=== PATIENT | female | born 1965 | race Caucasian/White ===

== ENCOUNTER 2017-08-11 05:50 | Day surgery (SDC) | payer BC ==
[2017-08-10 10:31] VITALS: BMI 39.1
--- OUTSIDE RECORDS SUMMARY | 2017-08-11 05:53 | XMS | Clinical Summary ---
:1965 Author Organization [facility] Address [address] [place] [address] Phone Care Team Providers Name Role Phone , Primary Care Provider Unavailable Allergies Not on File Current Medications Not on file Active Problems Not on file Social History Tobacco Use Types Packs/Day Years Used Date Never Assessed Sex Assigned at Date Recorded Not on file Last Filed Vital Signs Not on file Plan of Treatment Not on file Results Not on filefrom Last 3 Months
[2017-08-11] MEDS ORDERED: Midazolam HCl 2 mg/2 ml Vial ONE (06:15)
[2017-08-11] MEDS ORDERED: Fentanyl 100 MCG/2 ML VIAL ONE (06:15)
[2017-08-11] MEDS ORDERED: Ropivacaine 0.2% HCl/PF 20 ML ONE (06:16)
[2017-08-11] MEDS ORDERED: traMADol HCl 50 MG TAB PO PRN ×2 (06:54)
[2017-08-11] MEDS ORDERED: Ropivacaine 0.2% 550 ML 550 ML NERVE BLCK SCH (06:54)
[2017-08-11] MEDS ORDERED: Ondansetron HCl/PF 4 MG/2 ML Vial IVP PRN (06:54)
[2017-08-11] MEDS ORDERED: HYDROcodone/Acetaminophen 10/325 mg Tablet PO PRN ×2 (06:54)
[2017-08-11] MEDS ORDERED: Zolpidem Tartrate 5 MG TAB PO PRN (06:54)
[2017-08-11] MEDS ORDERED: Promethazine HCl 25 MG/ML VIAL IM PRN (06:54)
[2017-08-11] MEDS ORDERED: Fentanyl 100 MCG/2 ML VIAL IV PRN (06:56)
[2017-08-11] MEDS ORDERED: Lidocaine 2% PF 10 ML AMP (For Epidural Use) ONE (07:22)
[2017-08-11] MEDS ORDERED: Propofol 200 MG/20 ML VIAL ONE (07:22)
[2017-08-11] MEDS ORDERED: Ondansetron HCl/PF 4 MG/2 ML Vial ONE (07:22)
[2017-08-11] MEDS ORDERED: Ketorolac Tromethamine 30 MG/ML VIAL ONE (07:22)
[2017-08-11] MEDS ORDERED: ePHEDrine/0.9% NaCl/PF SYRINGE 50 mg/10 ml ONE (07:22)
--- NOTE | 2017-08-11 12:05 | OP ---
PREOPERATIVE DIAGNOSIS: Rotator cuff tear, right shoulder. POSTOPERATIVE DIAGNOSIS: Rotator cuff tear, right shoulder. PROCEDURE PERFORMED: Arthroscopic rotator cuff repair. SURGEON: Esa Mcmahon M.D. ANESTHESIA: General. BLOOD LOSS: Minimal. SPECIMEN: None. DRAINS: None. COMPLICATIONS: None. ENVIRONMENTAL SCIENTIST: None. PROCEDURE IN DETAIL: The patient was taken to the operating room where general anesthesia was induc ed. The patient was placed in left lateral decubitus position. Right arm was placed in traction. Scope was placed in the posterior portal and cannula was placed in the lateral portal. Working port al was created anteriorly. She had no significant arthritis of the shoulder. She had a full-thickn ess rotator cuff tear. Scope was placed in the subacromial bursa. I performed a subacromial decomp ression and bursectomy. This exposed the tear, which was a strange configuration. It was a longitu dinal rent in the rotator cuff. I freshened up the rotator cuff from both sides with a shaver and p laced several [id number] sutures using Orthocord with a good watertight repair. Then, I placed chavez ture anchors through the greater tuberosity. I freshened the greater tuberosity up at the bur to ge t bleeding bone and sutured down to bone with a good watertight repair. Shoulder was drained. Port als closed with nylon suture.
== END 2017-08-11 11:00 | disposition home or self-care (01) ==
LOC: SDC 05:50
PROVIDERS: ATTEND Orthopaedic Surgery
DX: M75.121 Complete rotator cuff tear or rupture of right shoulder, not specified as traumatic (principal); M26.69 Other specified disorders of temporomandibular joint; K21.9 Gastro-esophageal reflux disease without esophagitis; E03.9 Hypothyroidism, unspecified; F17.210 Nicotine dependence, cigarettes, uncomplicated; J45.909 Unspecified asthma, uncomplicated; Z90.710 Acquired absence of both cervix and uterus; Z90.89 Acquired absence of other organs; Z96.659 Presence of unspecified artificial knee joint; Z88.8 Allergy status to other drugs, medicaments and biological substances; Z91.048 Other nonmedicinal substance allergy status; Z98.1 Arthrodesis status
CPT/HCPCS: A4306; G8984-GP-CN; G8985-GP-CN; G8986-GP-CN; J1885; J2001; J2250; J2405; J2704; J2795; J3010

== ENCOUNTER 2018-08-16 15:48 | Outpatient (CLI) | payer BC ==
[2018-08-16 16:34] LABS: #Basophils 0.1 thou/uL (0.0-0.2); #Eosinphils 0.2 thou/uL (0.0-0.7); #Lymphocytes 4.5 thou/uL (1.20-3.40); #Monocytes 1.3 thou/uL (0.11-0.59); #Neutrophils 4.5 thou/uL (1.40-6.50); %Basophils 1.4 % (0.0-1.0); %Eosinophils 1.8 % (0.0-10.0); %Lymphocytes 42.5 % (21.0-51.0); %Neutrophils 42.3 % (42.0-75.0); Hemoglobin 14.5 g/dL (12.0-16.0); Mean Corpuscular HGB CONC 32.9 g/dL (32.0-36.0); Mean Corpuscular Hemoglobin 31.1 pg (27.0-31.0); Mean Corpuscular Volume 94.8 fL (78.0-98.0); Mean Platelet Volume 6.8 fL (7.4-10.4); Platelet Count 424 thou/uL (130-400); Red Blood Cell (RBC) Count 4.67 mill/uL (4.20-5.40); White Blood Cell (WBC) Count 10.6 thou/uL (4.8-10.8)
[2018-08-16 16:49] LABS: Anion Gap 12 mmol/L (10-20); BUN (Urea Nitrogen) 15 mg/dL (9.8-20.1); Calc. Creatinine Clearance 0 mL/min (70-130); Calcium 9.8 mg/dL (7.8-10.44); Carbon Dioxide 26 mmol/L (22-29); Chloride 105 mmol/L (98-107); Estimated GFR-MDRD 75; Glucose 110 mg/dL (70-105); Potassium 4.4 mmol/L (3.5-5.1); Sodium 139 mmol/L (136-145)
== END 2018-08-16 15:49 | disposition home or self-care (01) ==
LOC: LABBT 15:48
PROVIDERS: ATTEND Orthopaedic Surgery
DX: Z01.818 Encounter for other preprocedural examination (principal); M75.102 Unspecified rotator cuff tear or rupture of left shoulder, not specified as traumatic
CPT/HCPCS: 80048; 85025

== ENCOUNTER 2018-08-17 06:16 | Day surgery (SDC) | payer BC ==
[2018-08-16 15:58] VITALS: BMI 39.5
[2018-08-17] MEDS ORDERED: Midazolam HCl 2 mg/2 ml Vial ONE (06:44)
[2018-08-17] MEDS ORDERED: Fentanyl 100 MCG/2 ML VIAL ONE (06:44)
[2018-08-17] MEDS ORDERED: Scopolamine 1.5 mg/72 hour Patch ONE (06:45)
[2018-08-17] MEDS ORDERED: Lidocaine 1% (PF) 30 ML VIAL ONE (06:45)
[2018-08-17] MEDS ORDERED: Ondansetron HCl/PF 4 MG/2 ML Vial ONE ×2 (06:45→09:22)
[2018-08-17] MEDS ORDERED: CEFAZOLIN/Water 2 GM/20 ML SYRINGE ONE (07:05)
[2018-08-17] MEDS ORDERED: Ropivacaine 0.2% 550 ML 550 ML NERVE BLCK SCH (07:41)
[2018-08-17] MEDS ORDERED: traMADol HCl 50 MG TAB PO PRN ×2 (07:41)
[2018-08-17] MEDS ORDERED: Promethazine HCl 25 MG/ML VIAL IM PRN (07:41)
[2018-08-17] MEDS ORDERED: Ondansetron HCl/PF 4 MG/2 ML Vial IVP PRN (07:41)
[2018-08-17] MEDS ORDERED: HYDROcodone/Acetaminophen 10/325 mg Tablet PO PRN ×2 (07:41)
[2018-08-17] MEDS ORDERED: Zolpidem Tartrate 5 MG TAB PO PRN (07:41)
[2018-08-17] MEDS ORDERED: Fentanyl 100 MCG/2 ML VIAL IV PRN (07:42)
--- NOTE | 2018-08-17 12:25 | OP ---
DATE OF PROCEDURE: 08/17/2018 PREOPERATIVE DIAGNOSES: Rotator cuff tear and impingement of left shoulder. POSTOPERATIVE DIAGNOSES: Rotator cuff tear and impingement of left shoulder. PROCEDURE: Arthroscopic rotator cuff repair, arthroscopic subacromial decompression. SURGEON: Esa Mcmahon M.D. ANESTHESIA: General. BLOOD LOSS: Minimal. SPECIMEN: None. DRAINS: None. COMPLICATIONS: None. DESCRIPTION OF PROCEDURE: The patient is taken to the operating room where general anesthesia was in duced. The patient was placed in right lateral decubitus position. Left arm was prepped and draped in the usual sterile fashion. Fifteen pounds of traction was applied and placed the scope in the gle nohumeral joint. Biceps tendon was in good condition. The glenohumeral joint was in good condition. There was full-thickness rotator cuff tear which was fairly small. Scope was placed subacrom ial bursa. Subacromial decompression was performed. CA ligament was taken down. Hemostasis was obt ained as needed. I freshened the greater tuberosity and freshened rotator cuff repair. Single corks crew suture anchor was placed at the rotator cuff and tied with a good watertight repair and then arpita nforced with a double row using a SwiveLock device. Shoulder was then drained. Portals closed with nylon suture. Sterile dressings applied.
== END 2018-08-17 11:50 | disposition home or self-care (01) ==
LOC: SDC 06:16
PROVIDERS: ATTEND Orthopaedic Surgery
PROC: 0LQ24ZZ Repair Left Shoulder Tendon, Percutaneous Endoscopic Approach (ICD-10-PCS; principal; 2018-08-17)
PROC: 0RNK4ZZ Release Left Shoulder Joint, Percutaneous Endoscopic Approach (ICD-10-PCS; principal; 2018-08-17)
DX: M75.122 Complete rotator cuff tear or rupture of left shoulder, not specified as traumatic (principal); M75.42 Impingement syndrome of left shoulder; M25.812 Other specified joint disorders, left shoulder; E66.9 Obesity, unspecified; M85.80 Other specified disorders of bone density and structure, unspecified site; Z79.899 Other long term (current) drug therapy; Z88.5 Allergy status to narcotic agent
CPT/HCPCS: 96374; A4306; C1713; G8984-GP-CK; G8985-GP-CK; G8986-GP-CK; J2001; J2250; J2405; J2795; J3010

== ENCOUNTER 2018-10-23 11:19 | Outpatient (CLI) | payer BC ==
--- NOTE | 2018-10-23 15:17 | CT ---
CT ABDOMEN WITH CONTRAST CT PELVIS WITH CONTRAST: DATE: 10/23/18 TIME: 1245 hours HISTORY: 52-year-old female with mid-lower abdominal pain for a few days. Multiple previous abdominal surgerie s. COMPARISON: 11/17/2007. TECHNIQUE: IV injection of iodinated contrast media: Isovue M300. Oral contrast media: RediCat2. 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 The urinary bladder has normal, thin roman. There is a new finding of moderate fat stranding in the pelvic cavity, asymmetrically greater on the right side than left. This has the appearance of unorganized edema fluid. There is a small foc al soft tissue density superior extension of the right side of the vaginal cuff which abuts the recto sigmoid colon. This was present on the previous CT, and has not increased in size. There is no pneumo peritoneum. No small bowel dilation. No pleural effusion or consolidation at the lung bases. No major pathology identified involving the liver, abdominal aorta, kidneys, adrenals, pancreas, or spleen. N o organized fluid collection to indicate abscess. IMPRESSION: 1. Status post appendectomy and hysterectomy. 2. New finding of edema in the pelvic cavity, right greater than left. The source of this edema is n ot apparent. Sigmoid colonic diverticulitis is one possible etiology, although no obvious infected di verticulum is identified. Follow-up is recommended. JNR POS: TPC
== END 2018-10-23 11:20 | disposition home or self-care (01) ==
LOC: CT 11:19
PROVIDERS: ATTEND Family Medicine
DX: R10.30 Lower abdominal pain, unspecified (principal); R60.0 Localized edema; Z90.710 Acquired absence of both cervix and uterus; Z90.49 Acquired absence of other specified parts of digestive tract
CPT/HCPCS: 36415; 74177; 80053; 83690; 85025; 86140; 87086

== ENCOUNTER 2020-01-02 08:18 | Outpatient (CLI) | payer BC ==
--- NOTE | 2020-01-02 10:53 | MRI ---
MRI Lower Ext Jt Lt WO Con History: Strain of other muscle Comparison: None Findings: Ligaments: The ATFL and PIP FL are intact. ATFL and CFL are thickened. The superficial and deep deltoid ligaments are intact. The spring ligament superomedial pain is thickened and scarred tibiospring ligament is intact. Inferior longitudinal medial plantar oblique portions of the spring ligament are intact. Tendons: Prior posterior tibial tendon repair with evidence of a prior repair. There is high-grade pa rtial tear of the posterior tibial tendon 3 cm from the navicular the implantation site for which the medial tendon is wavy in the lateral insertion appears to be intact. There is granulation and sca r tissue between the medial torn tendon and the navicular reimplantation site with surgical anchors. The flexor hallucis and flexor digitorum tendons are intact. Extensor tendons are intact. Mild increased tenosynovial fluid within the peroneal tendon sheath without subluxation. Logical spli t tear peroneus brevis the level of the lateral malleolus for length of 1 cm before reconstituting. The Achilles tendon is intact. Bones: Evidence of prior repair posterior tibial tendon at the navicular insertion with suture anchor . Lisfranc interval appears been maintained. Inhomogeneous fat saturation of the midfoot limits evaluation for stress fracture, although none is seen on the sagittal images. Small plantar calcaneal spur. Mild degenerative disease between the navicular and the intermediate cuneiform. Mild second tarsometa tarsal degenerative disease. Muscles: Muscle signal and bulk is normal. Soft tissues: Low-grade thickening central band plantar fascia without adjacent perifascial edema. Mi ld circumferential soft tissue swelling of the ankle. Impression: 1. High-grade partial tear medial 1/2 posterior tibial tendon 3 cm from the medial navicular inserti on with the lateral insertion intact. There is extensive scar and granulation tissue between the medial tendon the medial navicular screw. 2. Longitudinal split tear peroneus brevis at the level of the lateral malleolus for length to 2 cm b efore reconstituting. 3. Thickened scarred superomedial band sprain ligament with intact inferior longitudinal and medial p lantar oblique portions.
== END 2020-01-02 08:19 | disposition home or self-care (01) ==
LOC: MRI 08:18
PROVIDERS: ATTEND Orthopaedic Surgery
DX: S86.112A Strain of other muscle(s) and tendon(s) of posterior muscle group at lower leg level, left leg, initial encounter (principal); S86.312A Strain of muscle(s) and tendon(s) of peroneal muscle group at lower leg level, left leg, initial encounter; S93.492A Sprain of other ligament of left ankle, initial encounter

== ENCOUNTER 2020-05-29 14:12 | Outpatient (CLI) | payer BC ==
--- NOTE | 2020-05-29 15:58 | MRI ---
MRI OF THE RIGHT SHOULDER 05/29/20 PROVIDED CLINICAL HISTORY: Acute pain of right shoulder. FINDINGS: Evaluation is limited by patient motion. Comparison made with the examination dated 04/16/15. Metallic susceptibility artifact is again noted in the region of the greater tuberosity, compatible w ith changes of prior rotator cuff repair. Susceptibility artifact in combination with patient motion limits evaluation in this region. There is again noted to be a fluid signal intensity gap between the posterior intact fibers of the s upraspinatus tendon and the intact anterior fibers of the infraspinatus tendon. This gap measures abo ut 8 mm in width. There is apparent retraction as some of the posterior supraspinatus tendon fibers t o about the level of the acromion. The components of the rotator cuff appear otherwise intact. The lo ng head biceps tendon appears intact and normally located. The glenoid labrum and glenohumeral articu lar cartilage are suboptimally evaluated in the absence of joint distention but appear grossly normal . The amount of fluid within the glenohumeral joint appears physiologic. Conspicuous subacromial subdeltoid bursal fluid is redemonstrated. Acromioclavicular joint osteoarthr osis with no significant mass effect upon the subjacent supraspinatus. Rotator cuff muscular volume appears preserved. No focal concerning regional marrow or muscular signal abnormality apparent. IMPRESSION: 1. Limited study due to patient motion and susceptibility artifact. 2. Redemonstration of full thickness gap involving the posterior distal supraspinatus and anteri or distal infraspinatus tendons as described above with associated greater than physiologic subacromi al subdeltoid bursal fluid. The findings appear similar to the prior study. Correlate with surgical h istory. POS: JOSEFINA
== END 2020-05-29 14:13 | disposition home or self-care (01) ==
LOC: BICMRI 14:12
PROVIDERS: ATTEND Orthopaedic Surgery
DX: M25.511 Pain in right shoulder (principal)

== ENCOUNTER 2020-09-23 07:20 | Outpatient (CLI) | payer BC ==
[2020-09-23 13:38] LABS: Hemoglobin 15.1 g/dL (12.0-16.0); Mean Corpuscular HGB CONC 33.4 G/DL (32.0-36.0); Mean Corpuscular Hemoglobin 30.7 PG (27.0-33.0); Mean Corpuscular Volume 91.9 fl (80.0-100.0); Platelet Count 460 10x3/uL (130-400); RBC Distribution Width 13.6 % (11.5-14.5); Red Blood Cell (RBC) Count 4.92 10x6/uL (3.90-5.20); White Blood Cell (WBC) Count 11.5 10x3/uL (4.5-11.0)
[2020-09-23 14:16] LABS: Anion Gap 16 mmol/L (10-20); BUN (Urea Nitrogen) 15 mg/dL (9.8-20.1); Calc. Creatinine Clearance 0 mL/min (70-130); Calcium 9.7 mg/dL (7.8-10.44); Carbon Dioxide 23 mmol/L (22-29); Chloride 101 mmol/L (98-107); Estimated GFR-MDRD 79; Glucose 130 mg/dL (70-105); Potassium 4.1 mmol/L (3.5-5.1); Sodium 136 mmol/L (136-145)
[2020-09-23 14:23] LABS: MDiff Complete? YES
[2020-09-23 15:14] LABS: Eosinophils 1 % (0-10); Lymphocytes 45 % (21-51); Monocytes 7 % (0-10); Neutrophil 40 % (42-75); Reactive Lymphocytes 7 % (0-10)
[2020-09-23 15:15] LABS: Platelet Morphology Comment Appears Increased
[2020-09-23 15:16] LABS: RBC Morphology N
[2020-09-24 05:46] LABS: SARS-CoV-2 MS2 Positive; SARS-CoV-2 N Gene Negative; SARS-CoV-2 S Gene Negative; SARS-CoV-2 by NAA Not Detected (NotDetected); SARS-CoV-2 orf1ab Negative
--- NOTE | 2020-09-26 07:02 | EKG ---
Test Reason : PREOP Blood Pressure : / mmHG Vent. Rate : 086 BPM Atrial Rate : 086 BPM P-R Int : 164 ms QRS Dur : 084 ms QT Int : 392 ms P-R-T Axes : 057 013 075 degrees QTc Int : 469 ms Normal sinus rhythm Possible Left atrial enlargement Possible Anteroseptal infarct , age undetermined Abnormal ECG Confirmed by GABRIELLA WRIGHT MD ([id number]) on 09/26/2020 7:02:41 AM Referred By: JEB Confirmed By:GABRIELLA WRIGHT MD
== END 2020-09-23 07:21 | disposition home or self-care (01) ==
LOC: LABBT 07:20
PROVIDERS: ATTEND Orthopaedic Surgery
DX: Z01.818 Encounter for other preprocedural examination (principal); Z20.828 Contact with and (suspected) exposure to other viral communicable diseases; G56.02 Carpal tunnel syndrome, left upper limb; M75.101 Unspecified rotator cuff tear or rupture of right shoulder, not specified as traumatic
CPT/HCPCS: 80048; 85025; 87635; 93005; 93010; U0003

== ENCOUNTER 2020-09-26 05:54 | Day surgery (SDC) | payer BC ==
[2020-09-25 10:30] VITALS: BMI 41.9
[2020-09-26] MEDS ORDERED: Midazolam HCl 2 mg/2 ml Vial ONE (06:39)
[2020-09-26] MEDS ORDERED: Fentanyl 100 MCG/2 ML VIAL ONE ×2 (06:39→07:18)
[2020-09-26] MEDS ORDERED: Lidocaine 1% w/Epinephrine 1:100K 20 ML VIAL ONE (07:01)
[2020-09-26] MEDS ORDERED: traMADol HCl 50 MG TAB PO PRN ×2 (07:45)
[2020-09-26] MEDS ORDERED: Zolpidem Tartrate 5 MG TAB PO PRN (07:45)
[2020-09-26] MEDS ORDERED: Ropivacaine 0.2% 550 ML 550 ML NERVE BLCK SCH (07:45)
[2020-09-26] MEDS ORDERED: Ondansetron PF 4 MG/2 ML Vial IVP PRN (07:45)
[2020-09-26] MEDS ORDERED: Promethazine HCl 25 MG/ML VIAL IM PRN (07:45)
[2020-09-26] MEDS ORDERED: HYDROcodone/Acetaminophen 5/325 mg Tablet PO PRN ×2 (07:45)
[2020-09-26] MEDS ORDERED: Ketorolac Tromethamine 30 MG/ML VIAL IVP SCH (12:00)
[2020-09-26] MEDS ORDERED: Dexamethasone 20 MG/5 ML VIAL ONE (13:07)
[2020-09-26] MEDS ORDERED: PROPOFOL 200 MG/20 ML VIAL ONE (13:07)
[2020-09-26] MEDS ORDERED: Lidocaine 1% PF 5 ML VIAL ONE (13:07)
[2020-09-26] MEDS ORDERED: Glycopyrrolate 0.2 MG/ML 5 ML SYRINGE ONE (13:07)
[2020-09-26] MEDS ORDERED: Ropivacaine 0.5% HCl/PF (150 MG/30 ML VIAL) ONE (13:07)
[2020-09-26] MEDS ORDERED: Ketorolac Tromethamine 30 MG/ML VIAL ONE (13:07)
[2020-09-26] MEDS ORDERED: Rocuronium Bromide 10 MG/ML (10ML VIAL) ONE (13:07)
[2020-09-26] MEDS ORDERED: Ondansetron PF 4 MG/2 ML Vial ONE (13:07)
[2020-09-26] MEDS ORDERED: Ropivacaine 0.2% HCl/PF (40 MG/20 ML VIAL) ONE (13:07)
--- NOTE | 2020-09-26 13:39 | OP ---
DATE OF PROCEDURE: 09/26/2020 PREOPERATIVE DIAGNOSES: Right rotator cuff tear, left carpal tunnel syndrome. POSTOPERATIVE DIAGNOSES: Right rotator cuff tear, left carpal tunnel syndrome. ACCOUNTING REPRESENTATIVE: Jeremy. BLOOD LOSS: Minimal. SPECIMEN: None. DRAINS: None. COMPLICATION: None. DESCRIPTION OF PROCEDURE: After appropriate consent was obtained, the patient was taken to the operating room, where general anesthesia was induced. The patient was placed in a beach chair position. I made a lateral incision for standard deltoid split acromion, an anterior-inferior acromioplasty was performed. Bursectomy was performed. The rotator cuff tear was identified all the way up to the glenoid, this was a longitudinal type tear. I freshened up the edges of the tear with a knife, freshened up the greater tuberosity. I used a Cottony Dacron suture to weave a baseball-type stitch with a really good watertight repair. I tied this, then I attached the suture to the greater tuberosity with a self-punching SwiveLock device. Irrigation was performed. Deltoid was repaired with #1 Ethibond. Subcu closed with 2-0 Vicryl and skin was closed with kenyon. Sterile dressing was applied. Attention was turned to the left wrist. After appropriate consent was obtained, the patient was taken to the operating room where TIVA anesthesia was induced. The arm was prepped and draped in the sterile fashion. The arm was exsanguinated. The tourniquet was inflated to 250 mmHg. A longitudinal incision was made. Hemostasis obtained. Dissection was carried down to the transverse carpal ligament. The transverse carpal ligament was incised. Hemostat was placed deep in the transverse carpal ligament. The knife was used to cut down unto the ligament and hemostat. Care was taken to protect the contents of the carpal canal. Attention was then turned proximally. Metzenbaum scissors were used to release the carpal ligament into the forearm fascia. The carpal tunnel was palpated. There were no masses. The tourniquet was released. Hemostasis was obtained. Copious irrigation performed. The skin was closed with 4-0 nylon. A sterile dressing was applied and the patient was placed in a splint. There were no complications. Job ID: [id number]
== END 2020-09-26 12:00 | disposition home or self-care (01) ==
LOC: SDC 05:54
PROVIDERS: ATTEND Orthopaedic Surgery
PROC: 01N50ZZ Release Median Nerve, Open Approach (ICD-10-PCS; principal; 2020-09-26)
PROC: 3E0T3BZ Introduction of Anesthetic Agent into Peripheral Nerves and Plexi, Percutaneous Approach (ICD-10-PCS; principal; 2020-09-26)
PROC: 0LQ10ZZ Repair Right Shoulder Tendon, Open Approach (ICD-10-PCS; principal; 2020-09-26)
DX: S46.011A Strain of muscle(s) and tendon(s) of the rotator cuff of right shoulder, initial encounter (principal); G56.02 Carpal tunnel syndrome, left upper limb; G89.18 Other acute postprocedural pain; M85.80 Other specified disorders of bone density and structure, unspecified site; J45.909 Unspecified asthma, uncomplicated; K21.9 Gastro-esophageal reflux disease without esophagitis; E03.9 Hypothyroidism, unspecified; F17.210 Nicotine dependence, cigarettes, uncomplicated; E66.9 Obesity, unspecified; Z68.41 Body mass index [BMI] 40.0-44.9, adult; Z79.899 Other long term (current) drug therapy; Z88.8 Allergy status to other drugs, medicaments and biological substances; Z91.048 Other nonmedicinal substance allergy status; W01.0XXA Fall on same level from slipping, tripping and stumbling without subsequent striking against object, initial encounter; W10.8XXA Fall (on) (from) other stairs and steps, initial encounter
CPT/HCPCS: A4306; C1713; J0690; J1100; J1885; J2250; J2405; J2704; J2795; J3010

== ENCOUNTER 2021-08-18 15:56 | Outpatient (CLI) | payer BC | END 2021-08-18 15:57 | disposition home or self-care (01) | LOC: BICMAMMO 15:56 | PROVIDERS: ATTEND Family Medicine | DX: Z12.31 Encounter for screening mammogram for malignant neoplasm of breast (principal); Z80.3 Family history of malignant neoplasm of breast | CPT/HCPCS: 77063; 77067 ==

== ENCOUNTER 2022-03-08 12:41 | Outpatient (CLI) | payer OTHER ==
[2022-03-08 13:30] LABS: #Basophils 0.1 10x3/uL (0.0-0.2); #Eosinphils 0.2 10x3/uL (0.0-0.5); #Monocytes 0.8 10x3/uL (0.0-1.1); %Basophils 0.5 % (0.0-2.0); %Eosinophils 1.6 % (0.0-6.0); %Lymphocytes 49.6 % (18.0-47.0); %Monocytes 8.1 % (0.0-10.0); Hemoglobin 14.2 g/dL (12.0-15.5); Mean Corpuscular HGB CONC 33.9 g/dL (32.0-36.0); Mean Corpuscular Volume 91.5 fl (81.6-98.3); Mean Platelet Volume 8.9 fl (7.4-10.4); Platelet Count 409 10x3/uL (150-450); RBC Distribution Width 13.2 % (11.5-14.5); Red Blood Cell (RBC) Count 4.58 10x6/uL (3.90-5.03)
[2022-03-08 13:48] LABS: Anion Gap 15 mmol/L (10-20); BUN (Urea Nitrogen) 14 mg/dL (9.8-20.1); Calc. Creatinine Clearance 0 mL/min (70-130); Calcium 9.6 mg/dL (7.8-10.44); Carbon Dioxide 23 mmol/L (22-29); Chloride 105 mmol/L (98-107); Glucose 105 mg/dL (70-105); Potassium 4.5 mmol/L (3.5-5.1); Sodium 138 mmol/L (136-145)
[2022-03-09 00:09] LABS: SARS-CoV-2 PCR by NAA Not Detected (NotDetected)
== END 2022-03-08 12:42 | disposition home or self-care (01) ==
LOC: LABBT 12:41
PROVIDERS: ATTEND Orthopaedic Surgery
DX: Z01.812 Encounter for preprocedural laboratory examination (principal); S46.011A Strain of muscle(s) and tendon(s) of the rotator cuff of right shoulder, initial encounter; Z20.822 Contact with and (suspected) exposure to COVID-19
CPT/HCPCS: 80048; 85025; U0003; U0005

== ENCOUNTER 2022-03-11 06:02 | Day surgery (SDC) | payer OTHER ==
[2022-03-09 15:03] VITALS: BMI 38.7
[2022-03-11] MEDS ORDERED: ceFAZolin (BATCH) 2 GM/100 ML BAG ONE (06:26)
[2022-03-11] MEDS ORDERED: Lidocaine 1% MPF 2 ML VIAL ONE (06:26)
[2022-03-11] MEDS ORDERED: SODIUM CHLORIDE IVPB SCH (06:45)
[2022-03-11] MEDS ORDERED: ADMIXTURE FEE IVPB SCH (06:45)
[2022-03-11] MEDS ORDERED: VANCOMYCIN HCL IVPB SCH (06:45)
[2022-03-11] MEDS ORDERED: Vancomycin 1.5 GRAM/300 ML BAG 1.5 GM in Premix Bag 1 BAG IVPB SCH (06:45)
[2022-03-11] MEDS ORDERED: Fentanyl 100 MCG/2 ML VIAL ONE ×3 (06:51→09:57)
[2022-03-11] MEDS ORDERED: Lidocaine 1% (PF) 30 ML VIAL ONE (06:51)
[2022-03-11] MEDS ORDERED: Midazolam HCl 2 mg/2 ml Vial ONE (06:51)
[2022-03-11] MEDS ORDERED: Lidocaine 1% PF 5 ML VIAL ONE (07:05)
[2022-03-11] MEDS ORDERED: Glycopyrrolate 0.2 MG/ML 5 ML SYRINGE ONE (07:05)
[2022-03-11] MEDS ORDERED: PROPOFOL 200 MG/20 ML VIAL ONE (07:05)
[2022-03-11] MEDS ORDERED: Ketorolac Tromethamine 30 MG/ML VIAL ONE (07:05)
[2022-03-11] MEDS ORDERED: Dexamethasone 20 MG/5 ML VIAL ONE (07:05)
[2022-03-11] MEDS ORDERED: Rocuronium Bromide 10 MG/ML (10ML VIAL) ONE (07:05)
[2022-03-11] MEDS ORDERED: ePHEDrine 50 MG/ML VIAL ONE (07:05)
[2022-03-11] MEDS ORDERED: Ondansetron PF 4 MG/2 ML Vial ONE (07:05)
[2022-03-11] MEDS ORDERED: fentaNYL Citrate/PF 100 MCG/2 ML SYRINGE ONE (07:22)
[2022-03-11] MEDS ORDERED: Phenylephrine 10 MG/ML VIAL ONE (07:23)
[2022-03-11] MEDS ORDERED: Promethazine HCl 25 MG/ML VIAL ONE (07:23)
[2022-03-11] MEDS ORDERED: Fentanyl 100 MCG/2 ML VIAL IV PRN (07:42)
[2022-03-11] MEDS ORDERED: Ketorolac Tromethamine 30 MG/ML VIAL IVP PRN (07:45)
[2022-03-11] MEDS ORDERED: HYDROcodone/Acetaminophen 5/325 mg Tablet PO PRN ×2 (07:45)
[2022-03-11] MEDS ORDERED: Promethazine HCl 25 MG/ML VIAL IM PRN (07:45)
[2022-03-11] MEDS ORDERED: Ropivacaine 0.2% 550 ML 550 ML NERVE BLCK SCH (07:45)
[2022-03-11] MEDS ORDERED: Zolpidem Tartrate 5 MG TAB PO PRN (07:45)
[2022-03-11] MEDS ORDERED: traMADol HCl 50 MG TAB PO PRN ×2 (07:45)
[2022-03-11] MEDS ORDERED: Ondansetron PF 4 MG/2 ML Vial IVP PRN (07:45)
[2022-03-11] MEDS ORDERED: Ropivacaine 0.5% HCl/PF (150 MG/30 ML VIAL) ONE (12:04)
[2022-03-11] MEDS ORDERED: HYDROcodone/Acetaminophen 5/325 mg Tablet ONE (12:54)
== END 2022-03-11 13:19 | disposition home or self-care (01) ==
LOC: SDC 06:02
PROVIDERS: ATTEND Orthopaedic Surgery
PROC: 0LQ10ZZ Repair Right Shoulder Tendon, Open Approach (ICD-10-PCS; principal; 2022-03-11)
PROC: 3E0T3BZ Introduction of Anesthetic Agent into Peripheral Nerves and Plexi, Percutaneous Approach (ICD-10-PCS; principal; 2022-03-11)
DX: S46.011A Strain of muscle(s) and tendon(s) of the rotator cuff of right shoulder, initial encounter (principal); M75.81 Other shoulder lesions, right shoulder; M25.811 Other specified joint disorders, right shoulder; M85.80 Other specified disorders of bone density and structure, unspecified site; K21.9 Gastro-esophageal reflux disease without esophagitis; E03.9 Hypothyroidism, unspecified; F17.210 Nicotine dependence, cigarettes, uncomplicated; E66.9 Obesity, unspecified; Z68.38 Body mass index [BMI] 38.0-38.9, adult; Z79.1 Long term (current) use of non-steroidal anti-inflammatories (NSAID); Z79.890 Hormone replacement therapy; Z79.899 Other long term (current) drug therapy; Z88.8 Allergy status to other drugs, medicaments and biological substances; Z91.048 Other nonmedicinal substance allergy status; Z98.1 Arthrodesis status; Z98.890 Other specified postprocedural states; X58.XXXA Exposure to other specified factors, initial encounter; Y92.29 Other specified public building as the place of occurrence of the external cause; Y99.0 Civilian activity done for income or pay
CPT/HCPCS: A4306; C1713; J0690; J1100; J1885; J2001; J2250; J2370; J2405; J2550; J2704; J2795; J3010; J3370; J3490; J7030

== ENCOUNTER 2022-07-09 15:13 | Emergency (ER) | payer OTHER, BC ==
[2022-07-09] MEDS ORDERED: Fentanyl 100 MCG/2 ML VIAL ONE (15:48)
== END 2022-07-09 16:40 | disposition home or self-care (01) ==
LOC: ERS 15:13
DX: S13.4XXA Sprain of ligaments of cervical spine, initial encounter (principal); S40.011A Contusion of right shoulder, initial encounter; V89.2XXA Person injured in unspecified motor-vehicle accident, traffic, initial encounter
CPT/HCPCS: 70450; 71045; 72125; 94760; 96374; J3010

== ENCOUNTER 2022-11-03 12:48 | Outpatient (CLI) | payer BC | END 2022-11-03 12:49 | disposition home or self-care (01) | LOC: TBSIIMAG 12:48 | PROVIDERS: ATTEND Neurological Surgery | DX: M43.16 Spondylolisthesis, lumbar region (principal); M51.36 Other intervertebral disc degeneration, lumbar region; M48.061 Spinal stenosis, lumbar region without neurogenic claudication; M89.38 Hypertrophy of bone, other site | CPT/HCPCS: 72148 ==

== ENCOUNTER 2023-01-12 10:37 | Outpatient (CLI) | payer BC ==
[2023-01-12 12:19] LABS: Hemoglobin 13.7 g/dL (12.0-15.5); Mean Corpuscular HGB CONC 32.7 g/dL (32.0-36.0); Mean Corpuscular Hemoglobin 30.5 pg (27.0-33.0); Mean Corpuscular Volume 93.3 fl (81.6-98.3); Mean Platelet Volume 9.4 fl (7.4-10.4); Platelet Count 419 10x3/uL (150-450); RBC Distribution Width 13.1 % (11.5-14.5); Red Blood Cell (RBC) Count 4.49 10x6/uL (3.90-5.03); White Blood Cell (WBC) Count 12.8 10x3/uL (3.5-10.5)
[2023-01-12 12:38] LABS: INR-International Normal Ratio 0.9; PTT 28.5 sec (22.0-33.0); Prothrombin Time 9.5 sec (9.5-12.1)
== END 2023-01-12 10:38 | disposition home or self-care (01) ==
LOC: LABBT 10:37
PROVIDERS: ATTEND Neurological Surgery
DX: Z01.812 Encounter for preprocedural laboratory examination (principal); M43.16 Spondylolisthesis, lumbar region; M48.062 Spinal stenosis, lumbar region with neurogenic claudication
CPT/HCPCS: 85027; 85610; 85730

== ENCOUNTER 2023-02-17 10:23 | Outpatient (CLI) | payer BC ==
[2023-02-17 12:48] LABS: Mean Corpuscular Hemoglobin 30.5 pg (27.0-33.0); Mean Corpuscular Volume 92.4 fl (81.6-98.3); Mean Platelet Volume 9.1 fl (7.4-10.4); Platelet Count 425 10x3/uL (150-450); RBC Distribution Width 13.2 % (11.5-14.5); Red Blood Cell (RBC) Count 4.59 10x6/uL (3.90-5.03); White Blood Cell (WBC) Count 12.3 10x3/uL (3.5-10.5)
[2023-02-17 12:59] LABS: INR-International Normal Ratio 0.9; PTT 29.4 sec (22.0-33.0); Prothrombin Time 9.7 sec (9.5-12.1)
== END 2023-02-17 10:24 | disposition home or self-care (01) ==
LOC: LABBT 10:23
PROVIDERS: ATTEND Neurological Surgery
DX: Z01.812 Encounter for preprocedural laboratory examination (principal); M43.16 Spondylolisthesis, lumbar region; M48.062 Spinal stenosis, lumbar region with neurogenic claudication
CPT/HCPCS: 82306; 85027; 85610; 85730

== ENCOUNTER 2023-02-24 06:54 | Observation (INO) | payer BC ==
[2023-02-22 15:34] VITALS: BMI 38.7
[2023-02-24] MEDS ORDERED: Ondansetron PF 4 MG/2 ML Vial IVP PRN (09:00)
[2023-02-24] MEDS ORDERED: Mag-Al 1200 mg/1200 mg/30 ML UDCUP PO PRN (09:00)
[2023-02-24] MEDS ORDERED: Acetaminophen 325 MG TAB PO PRN (09:00)
[2023-02-24] MEDS ORDERED: HYDROcodone/Acetaminophen 10/325 mg Tablet PO PRN (09:00)
[2023-02-24] MEDS ORDERED: HYDROcodone/Acetaminophen 7.5/325 mg Tablet PO PRN (09:00)
[2023-02-24] MEDS ORDERED: Morphine 2 MG/ML VIAL SLOW IVP PRN (09:00)
[2023-02-24] MEDS ORDERED: Milk Of Magnesia 30 ML UDCUP PO PRN (09:00)
[2023-02-24] MEDS ORDERED: Bisacodyl 10 MG SUPP PR PRN (09:00)
[2023-02-24] MEDS ORDERED: Prochlorperazine 10 MG/2 ML VIAL IM PRN (09:00)
[2023-02-24] MEDS ORDERED: Baclofen 10 MG TAB PO PRN (09:03)
[2023-02-24] MEDS ORDERED: tiZANidine HCl 4 MG TAB PO PRN (09:03)
[2023-02-24] MEDS ORDERED: Fentanyl 250 MCG/5 ML VIAL ONE (09:05)
[2023-02-24] MEDS ORDERED: Dexmedetomidine 200 MCG/2 ML VIAL ONE (09:05)
[2023-02-24] MEDS ORDERED: CEFAZOLIN 2 GM VIAL ONE (09:07)
[2023-02-24] MEDS ORDERED: Neomycin-Polymyxin 1 ML AMP ONE (09:07)
[2023-02-24] MEDS ORDERED: Thrombin 5000 UNITS/5 ML VIAL ONE (09:07)
[2023-02-24] MEDS ORDERED: Sodium Chloride 0.9% 100 ML ONE (09:07)
[2023-02-24] MEDS ORDERED: Bupivacaine HCl 0.5%/Epinephrine 1:200,000/PF 30 ml Vial ONE (09:07)
[2023-02-24] MEDS ORDERED: Vancomycin 1 GM VIAL ONE (09:07)
[2023-02-24] MEDS ORDERED: GLYCOPYRROLATE/PF 0.2 MG/ML VIAL ONE (09:22)
[2023-02-24] MEDS ORDERED: Rocuronium Bromide 10 MG/ML (10ML VIAL) ONE (09:22)
[2023-02-24] MEDS ORDERED: Vecuronium 10 MG VIAL ONE (09:22)
[2023-02-24] MEDS ORDERED: PROPOFOL 200 MG/20 ML VIAL ONE (09:22)
[2023-02-24] MEDS ORDERED: Ondansetron PF 4 MG/2 ML Vial ONE (09:22)
[2023-02-24] MEDS ORDERED: Dexamethasone 20 MG/5 ML VIAL ONE (09:22)
[2023-02-24] MEDS ORDERED: NEOSTIGMINE 3 MG/3 ML SYR 3 MG/3 ML SYRINGE ONE (09:22)
[2023-02-24] MEDS ORDERED: Lidocaine 1% PF 5 ML VIAL ONE (09:22)
[2023-02-24] MEDS ORDERED: MINERAL OIL/WHITE PETROLATUM 3.5 GM TUBE ONE (09:28)
[2023-02-24] MEDS ORDERED: Ondansetron HCl/PF 4 MG/2 ML Vial IVP PRN (14:38)
[2023-02-24] MEDS ORDERED: HYDROmorphone 2 MG/ML VIAL SLOW IVP PRN (14:38)
[2023-02-24] MEDS ORDERED: Morphine Sulfate 2 MG/ML SYRINGE SLOW IVP PRN (14:38)
[2023-02-24] MEDS ORDERED: Promethazine HCl 25 MG/ML VIAL IM PRN (14:38)
[2023-02-24] MEDS ORDERED: PACU-Morphine 4MG/ML VIAL SLOW IVP PRN (14:38)
[2023-02-24] MEDS ORDERED: HYDROmorphone 0.5 MG/0.5 ML SYRINGE ONE ×3 (14:57→15:19)
[2023-02-24] MEDS ORDERED: Morphine 4 MG/ML VIAL ONE (15:25)
[2023-02-24] MEDS ORDERED: fentaNYL 50 mcg/mL 1 mL Vial ONE ×2 (15:46→16:29)
[2023-02-24] MEDS ORDERED: CEFAZOLIN 2 GM in Sodium Chloride 0.9% 100 ML IVPB SCH (17:00)
[2023-02-24] MEDS: Sodium Chloride 0.9% 1,000 ML IV SCH ×2 (17:04→19:43)
[2023-02-24] MEDS: CEFAZOLIN 2 GM in Sodium Chloride 0.9% 100 ML IVPB SCH (19:34)
[2023-02-24] MEDS: Baclofen 10 MG TAB PO SCH (19:34)
[2023-02-24] MEDS ORDERED: Montelukast Sodium 10 mg Tablet PO SCH (21:00)
[2023-02-24] MEDS ORDERED: Atorvastatin Calcium 20 MG TAB PO SCH (21:00)
[2023-02-25] MEDS: Acetaminophen/Codeine 30-300mg Tablet PO PRN ×3 (01:13→08:59)
[2023-02-25] MEDS: CEFAZOLIN 2 GM in Sodium Chloride 0.9% 100 ML IVPB SCH (04:41)
[2023-02-25] MEDS ORDERED: Levothyroxine Sodium 125 MCG TAB PO SCH (06:00)
[2023-02-25] MEDS: Baclofen 10 MG TAB PO SCH (08:59)
[2023-02-25] MEDS ORDERED: Loratadine 10 MG TAB PO SCH (09:00)
[2023-02-25] MEDS: Sodium Chloride 0.9% 1,000 ML IV SCH (11:03)
[2023-02-25] MEDS ORDERED: Acetaminophen/Codeine 30-300mg Tablet PO PRN (11:47)
[2023-02-25 15:34] VITALS: BP 118/69; TEMP 98.6
== END 2023-02-25 15:40 | disposition home or self-care (01) ==
LOC: SDC 06:54 → SURG A 17:01
PROVIDERS: ADMIT Neurological Surgery; ATTEND Neurological Surgery
PROC: 0SG00AJ Fusion of Lumbar Vertebral Joint with Interbody Fusion Device, Posterior Approach, Anterior Column, Open Approach (ICD-10-PCS; principal; 2023-02-24)
PROC: 01NB0ZZ Release Lumbar Nerve, Open Approach (ICD-10-PCS; 2023-02-24)
DX: M43.16 Spondylolisthesis, lumbar region (principal); M48.062 Spinal stenosis, lumbar region with neurogenic claudication; M19.90 Unspecified osteoarthritis, unspecified site; J45.909 Unspecified asthma, uncomplicated; E78.00 Pure hypercholesterolemia, unspecified; G89.29 Other chronic pain; E07.9 Disorder of thyroid, unspecified; K21.9 Gastro-esophageal reflux disease without esophagitis; G56.03 Carpal tunnel syndrome, bilateral upper limbs; E66.9 Obesity, unspecified; Z68.38 Body mass index [BMI] 38.0-38.9, adult; Z87.891 Personal history of nicotine dependence; Z79.1 Long term (current) use of non-steroidal anti-inflammatories (NSAID); Z79.82 Long term (current) use of aspirin; Z79.890 Hormone replacement therapy; Z79.899 Other long term (current) drug therapy; Z88.8 Allergy status to other drugs, medicaments and biological substances; Z91.048 Other nonmedicinal substance allergy status; Z98.1 Arthrodesis status; Z98.890 Other specified postprocedural states
CPT/HCPCS: C1713; C1768; C1776; C1889; J1100; J1170; J2270; J2272; J2405; J2704; J3010; J3370; J3490; J7050

== ENCOUNTER 2023-08-29 09:20 | Outpatient (CLI) | payer OTHER | END 2023-08-29 09:21 | disposition home or self-care (01) | LOC: BICRAD 09:20 | PROVIDERS: ATTEND Internal Medicine | DX: Z02.71 Encounter for disability determination (principal); M47.816 Spondylosis without myelopathy or radiculopathy, lumbar region; Z98.1 Arthrodesis status; S92.902A Unspecified fracture of left foot, initial encounter for closed fracture | CPT/HCPCS: 72100 ==

== ENCOUNTER 2023-11-18 12:54 | Outpatient (CLI) | payer BC | END 2023-11-18 12:55 | disposition home or self-care (01) | LOC: BICMAMMO 12:54 | PROVIDERS: ATTEND Family Medicine | DX: Z12.31 Encounter for screening mammogram for malignant neoplasm of breast (principal); Z80.3 Family history of malignant neoplasm of breast | CPT/HCPCS: 77063; 77067 ==